=== PATIENT | male | born 1990 | race American Indian/Alaskan Native ===

== ENCOUNTER 2022-03-09 16:25 | Emergency (ER) | payer OTHER ==
[~2022-03-09] VITALS: Ht 188 cm; Wt 80.9 kg
[2022-03-09 17:08] VITALS: BP 119/72
[2022-03-09] MEDS ORDERED: erythromycin ophthalmic ointment 1gm tube EACHEYE ONE (17:35)
== END 2022-03-09 17:53 | disposition home or self-care (01) ==
LOC: ER 16:26
DX: H10.33 Unspecified acute conjunctivitis, bilateral (principal)
CPT/HCPCS: 99282